=== PATIENT | female | born 1990 | race Caucasian/White ===

== ENCOUNTER 2017-08-12 18:00 | Emergency (ER) | payer BC ==
[2017-08-12 18:09] VITALS: BP 123/58; PULSE 85; RESP 20; TEMP 98.4
[2017-08-12] MEDS ORDERED: IBUPROFEN 600 MG TAB PO STA (18:15)
--- NOTE | 2017-08-12 18:23 | ED ---
Upper Extremity HPI - General Chief Complaint: Extremity Injury, Upper Stated Complaint: Knuckle pain Time Seen by Provider: 08/12/17 18:10 Source: patient Mode of arrival: ambulatory Limitations: no limitations - History of Present Illness Initial Comments: This is a 27-year-old female who presents with a chief complaint of right hand pain which began about 8 days ago after she punched a wall. The patient states that she punched a wall at home and had minor bruising on her dorsal hand. She denies any additional symptoms occurring until 4 days ago when she dropped a heavy object on her palm at work. She states that she woke up the next morning with swelling and decreased range of motion of her right hand, especially her right 5th finger. She has been taking over the counter Motrin and using ice and heat to reduce the pain and swelling. She reports today is a 7/10 pain. - Related Data Home Medications Medication Instructions Recorded Confirmed Ibuprofen [Motrin Ib] 400 mg PO Q6HR PRN 08/12/17 08/12/17 Previous Rx's Medication Instructions Recorded Ibuprofen [Motrin] 600 mg PO Q8HR PRN #30 tab 08/12/17 Allergies Allergy/AdvReac Type Severity Reaction Status Date / Time No Known Allergies Allergy Verified 08/12/17 18:34 Review of Systems ROS Statement: Those systems with pertinent positive or pertinent negative responses have been documented in the HPI. ROS Other: All systems not noted in ROS Statement are negative. Past Medical History Past Medical History: No Reported History History of Any Multi-Drug Resistant Organisms: None Reported Past Surgical History: No Surgical Hx Reported Past Psychological History: No Psychological Hx Reported Smoking Status: Current every day smoker Past Alcohol Use History: None Reported Past Drug Use History: None Reported General Exam Limitations: no limitations General appearance: alert, in no apparent distress Head exam: Present: atraumatic, normocephalic, normal inspection Extremities exam: Present: normal inspection, other (patient is unable to close her right fist completely. Full active ROM of all digits but right 5th finger is painful. Notable edema of the right hand when compared bilaterally) Psychiatric exam: Present: normal affect, normal mood Skin exam: Present: warm, dry, intact, normal color. Absent: rash Course Vital Signs 08/12/17 18:07 Temperature 98.4 F Pulse Rate 85 Respiratory 20 Rate Blood Pressure 123/58 O2 Sat by Pulse 100 Oximetry Medical Decision Making - Medical Decision Making This is a 27 year old female who came into the ED with a chief complaint of right hand pain. She was given Motrin 600 to control her pain in the ER. Imaging of the right hand did not reveal any acute fracture, dislocation or abnormality. The findings were discussed with the patient. She was advised to continue Motrin as needed for pain. Disposition Clinical Impression: Contusion of right hand Disposition: HOME SELF-CARE Condition: Stable Instructions: Hand Sprain (ED) Additional Instructions: Please return to the emergency department if experiencing new or worsening symptoms. Prescriptions: Ibuprofen [Motrin] 600 mg PO Q8HR PRN #30 tab PRN Reason: Pain Referrals: None,Stated [Primary Care Provider] - 1-2 days Time of Disposition: 18:58
--- NOTE | 2017-08-12 19:41 | XR ---
EXAMINATION TYPE: XR hand complete RT DATE OF EXAM: 08/12/2017 COMPARISON: NONE HISTORY: Punching type injury pain fourth and fifth digits TECHNIQUE: Three-view right hand FINDINGS: No acute fractures are evident. The soft tissues are normal. Joint spaces are preserved. IMPRESSION: 1. No acute fractures. 2. Follow-up exams can be performed 7-10 days from acute trauma for continued pain
== END 2017-08-12 19:08 | disposition home or self-care (01) ==
LOC: EC 18:00
DX: S60.221A Contusion of right hand, initial encounter (principal); F17.200 Nicotine dependence, unspecified, uncomplicated; W20.8XXA Other cause of strike by thrown, projected or falling object, initial encounter; Y92.69 Other specified industrial and construction area as the place of occurrence of the external cause; Y99.0 Civilian activity done for income or pay
CPT/HCPCS: 99283

== ENCOUNTER 2018-04-10 11:39 | Emergency (ER) | payer BC, OTHER ==
[2018-04-10] MEDS ORDERED: SODIUM CHLORIDE 0.9% 1,000 ML IV ONE (12:25)
[2018-04-10 12:38] LABS: Appearance,Urine Cloudy (Clear); Bilirubin,Urine 1+ (Negative); Blood,Urine Negative (Negative); Color,Urine Yellow; Glucose,Urine (UA) Negative (Negative); Ketones,Urine Trace (Negative); Leukocyte Esterase,Urine Negative (Negative); Mucus,Urine Many /hpf; Nitrite,Urine Negative (Negative); Protein,Urine 2+ (Negative); RBC,Urine 3 /hpf (0-5); Specific Gravity,Urine 1.032 (1.001-1.035); Squamous Epithelial Cell,Urine 10 /hpf (0-4); WBC,Urine 3 /hpf (0-5)
[2018-04-10] MEDS ORDERED: PANTOPRAZOLE 40 MG/10 ML VIAL IVP STA (12:48)
[2018-04-10] MEDS ORDERED: ONDANSETRON 4 MG/2 ML VIAL IVP STA (12:48)
--- NOTE | 2018-04-10 12:53 | ED ---
Abdominal Pain HPI - General Chief Complaint: Abdominal Pain Stated Complaint: vomiting blood Time Seen by Provider: 04/10/18 12:21 Source: patient, RN notes reviewed, old records reviewed Mode of arrival: ambulatory Limitations: no limitations - History of Present Illness Initial Comments: 27-year-old female presents or dermatologic complaint of nausea, vomiting. Occurred after she ate a hot sausage sandwich 2 days ago. Patient states that she's had no fevers or chills. She complains of increased belching and epigastric abdominal pain. She denies fever, chills, lower abdominal pain, back pain. - Related Data Previous Rx's Medication Instructions Recorded Famotidine [Pepcid] 20 mg PO BID #20 tablet 04/10/18 Ondansetron Odt [Zofran Odt] 4 mg PO Q8HR PRN #12 tab 04/10/18 Allergies Allergy/AdvReac Type Severity Reaction Status Date / Time No Known Allergies Allergy Verified 04/10/18 12:39 Review of Systems ROS Statement: Those systems with pertinent positive or pertinent negative responses have been documented in the HPI. ROS Other: All systems not noted in ROS Statement are negative. Past Medical History Past Medical History: No Reported History History of Any Multi-Drug Resistant Organisms: None Reported Past Surgical History: No Surgical Hx Reported Past Psychological History: No Psychological Hx Reported Smoking Status: Current every day smoker Past Alcohol Use History: Occasional Past Drug Use History: None Reported General Exam - General Exam Comments Initial Comments: This is a 27 year old female. No acute distress. Limitations: no limitations General appearance: alert, in no apparent distress Head exam: Present: atraumatic, normocephalic, normal inspection Eye exam: Present: normal appearance, PERRL, EOMI. Absent: scleral icterus, conjunctival injection, periorbital swelling ENT exam: Present: normal exam, mucous membranes moist Neck exam: Present: normal inspection. Absent: tenderness, meningismus, lymphadenopathy Respiratory exam: Present: normal lung sounds bilaterally. Absent: respiratory distress, wheezes, rales, rhonchi, stridor Cardiovascular Exam: Present: regular rate, normal rhythm, normal heart sounds. Absent: systolic murmur, diastolic murmur, rubs, gallop, clicks GI/Abdominal exam: Present: soft, normal bowel sounds. Absent: distended, tenderness, guarding, rebound, rigid Extremities exam: Present: normal inspection, full ROM, normal capillary refill. Absent: tenderness, pedal edema, joint swelling, calf tenderness Back exam: Present: normal inspection Neurological exam: Present: alert, oriented X3, CN II-XII intact Psychiatric exam: Present: normal affect, normal mood Skin exam: Present: warm, dry, intact, normal color. Absent: rash Course Vital Signs 04/10/18 04/10/18 04/10/18 11:50 13:54 14:00 Temperature 98.9 F 98.7 F 98.1 F Pulse Rate 101 H 83 77 Respiratory 20 16 18 Rate Blood Pressure 139/78 115/57 131/72 O2 Sat by Pulse 97 100 98 Oximetry Medical Decision Making - Medical Decision Making Well appearing 27 year old female, presents with epigastric abdominal pain. Patient has vomiting yesterday. Patient was given IV fluids, labs obtained and show no acute changes. She was given IV protonix and zofran and reports improvement. Discussed likely symptoms of gastritis with increased belching, and epigastrtic pain. Patient will be discharged with pepcid and zofran. Discussed return parameters. - Lab Data Result diagrams: 04/10/18 12:48 04/10/18 12:48 Lab Results 04/10/18 04/10/18 04/10/18 Range/Units 12:00 12:00 12:48 WBC (3.8-10.6) k/uL RBC (3.80-5.40) m/uL Hgb (11.4-16.0) gm/dL Hct (34.0-46.0) % MCV (80.0-100.0) fL MCH (25.0-35.0) pg MCHC (31.0-37.0) g/dL RDW (11.5-15.5) % Plt Count (150-450) k/uL Neutrophils % % Lymphocytes % % Monocytes % % Eosinophils % % Basophils % % Neutrophils # (1.3-7.7) k/uL Lymphocytes # (1.0-4.8) k/uL Monocytes # (0-1.0) k/uL Eosinophils # (0-0.7) k/uL Basophils # (0-0.2) k/uL Sodium 141 (137-145) mmol/L Potassium 3.7 (3.5-5.1) mmol/L Chloride 105 (98-107) mmol/L Carbon Dioxide 28 (22-30) mmol/L Anion Gap 8 mmol/L BUN 13 (7-17) mg/dL Creatinine 0.75 (0.52-1.04) mg/dL Est GFR (CKD-EPI)AfAm >90 (>60 ml/min/1.73 sqM) Est GFR (CKD-EPI)NonAf >90 (>60 ml/min/1.73 sqM) Glucose 81 (74-99) mg/dL Calcium 9.1 (8.4-10.2) mg/dL Total Bilirubin 0.4 (0.2-1.3) mg/dL AST 26 (14-36) U/L ALT 31 (9-52) U/L Alkaline Phosphatase 53 (38-126) U/L Total Protein 7.0 (6.3-8.2) g/dL Albumin 4.1 (3.5-5.0) g/dL Amylase 46 (30-110) U/L Lipase 190 (23-300) U/L Urine Color Yellow Urine Appearance Cloudy H (Clear) Urine pH 6.0 (5.0-8.0) Ur Specific [place] 1.032 (1.001-1.035) Urine Protein 2+ H (Negative) Urine Glucose (UA) Negative (Negative) Urine Ketones Trace H (Negative) Urine Blood Negative (Negative) Urine Nitrite Negative (Negative) Urine Bilirubin 1+ H (Negative) Urine Urobilinogen 3.0 (<2.0) mg/dL Ur Leukocyte Esterase Negative (Negative) Urine RBC 3 (0-5) /hpf Urine WBC 3 (0-5) /hpf Ur Squamous Epith Cells 10 H (0-4) /hpf Urine Mucus Many H (None) /hpf Urine HCG, Qual Not Detected (Not Detectd) 04/10/18 Range/Units 12:48 WBC 8.1 (3.8-10.6) k/uL RBC 4.91 (3.80-5.40) m/uL Hgb 15.1 (11.4-16.0) gm/dL Hct 45.8 (34.0-46.0) % MCV 93.4 (80.0-100.0) fL MCH 30.7 (25.0-35.0) pg MCHC 32.9 (31.0-37.0) g/dL RDW 12.7 (11.5-15.5) % Plt Count 158 (150-450) k/uL Neutrophils % 57 % Lymphocytes % 33 % Monocytes % 7 % Eosinophils % 1 % Basophils % 1 % Neutrophils # 4.6 (1.3-7.7) k/uL Lymphocytes # 2.7 (1.0-4.8) k/uL Monocytes # 0.5 (0-1.0) k/uL Eosinophils # 0.1 (0-0.7) k/uL Basophils # 0.1 (0-0.2) k/uL Sodium (137-145) mmol/L Potassium (3.5-5.1) mmol/L Chloride (98-107) mmol/L Carbon Dioxide (22-30) mmol/L Anion Gap mmol/L BUN (7-17) mg/dL Creatinine (0.52-1.04) mg/dL Est GFR (CKD-EPI)AfAm (>60 ml/min/1.73 sqM) Est GFR (CKD-EPI)NonAf (>60 ml/min/1.73 sqM) Glucose (74-99) mg/dL Calcium (8.4-10.2) mg/dL Total Bilirubin (0.2-1.3) mg/dL AST (14-36) U/L ALT (9-52) U/L Alkaline Phosphatase (38-126) U/L Total Protein (6.3-8.2) g/dL Albumin (3.5-5.0) g/dL Amylase (30-110) U/L Lipase (23-300) U/L Urine Color Urine Appearance (Clear) Urine pH (5.0-8.0) Ur Specific [place] (1.001-1.035) Urine Protein (Negative) Urine Glucose (UA) (Negative) Urine Ketones (Negative) Urine Blood (Negative) Urine Nitrite (Negative) Urine Bilirubin (Negative) Urine Urobilinogen (<2.0) mg/dL Ur Leukocyte Esterase (Negative) Urine RBC (0-5) /hpf Urine WBC (0-5) /hpf Ur Squamous Epith Cells (0-4) /hpf Urine Mucus (None) /hpf Urine HCG, Qual (Not Detectd) Disposition Clinical Impression: Gastritis Disposition: HOME SELF-CARE Condition: Good Instructions: Gastritis (ED) Additional Instructions: Patient is follow-up with primary care provider. Take medications as prescribed. Return to emergency department if any alarming signs or symptoms occur. Prescriptions: Famotidine [Pepcid] 20 mg PO BID #20 tablet Ondansetron Odt [Zofran Odt] 4 mg PO Q8HR PRN #12 tab PRN Reason: Nausea Is patient prescribed a controlled substance at d/c from ED?: No Referrals: None,Stated [Primary Care Provider] - 1-2 days Tess Villanueva MD [STAFF PHYSICIAN] - 1-2 days Time of Disposition: 13:36
[2018-04-10 13:12] LABS: Basophils # (A) 0.1 k/uL (0-0.2); Basophils % (A) 1 %; Eosinophils # (A) 0.1 k/uL (0-0.7); Eosinophils % (A) 1 %; HCT 45.8 % (34.0-46.0); HGB 15.1 gm/dL (11.4-16.0); Lymphocytes # (A) 2.7 k/uL (1.0-4.8); Lymphocytes % (A) 33 %; MCH 30.7 pg (25.0-35.0); MCHC 32.9 g/dL (31.0-37.0); MCV 93.4 fL (80.0-100.0); Mean Platelet Volume 7.6; Monocytes # (A) 0.5 k/uL (0-1.0); Monocytes % (A) 7 %; Neutrophils # (A) 4.6 k/uL (1.3-7.7); Neutrophils % (A) 57 %; Platelet Count 158 k/uL (150-450); RBC 4.91 m/uL (3.80-5.40); RDW 12.7 % (11.5-15.5); WBC 8.1 k/uL (3.8-10.6)
[2018-04-10 13:23] LABS: ALT 31 U/L (9-52); AST 26 U/L (14-36); Albumin 4.1 g/dL (3.5-5.0); Alkaline Phosphatase 53 U/L (38-126); Amylase 46 U/L (30-110); Anion Gap 8 mmol/L; Blood Urea Nitrogen 13 mg/dL (7-17); Calcium 9.1 mg/dL (8.4-10.2); Carbon Dioxide 28 mmol/L (22-30); Chloride 105 mmol/L (98-107); Glucose 81 mg/dL (74-99); Lipase 190 U/L (23-300); Potassium 3.7 mmol/L (3.5-5.1); Sodium 141 mmol/L (137-145); Total Bilirubin 0.4 mg/dL (0.2-1.3)
[2018-04-10 14:01] VITALS: BP 131/72; PULSE 77; RESP 18; TEMP 98.1
== END 2018-04-10 14:00 | disposition home or self-care (01) ==
LOC: EC 11:39
DX: K29.70 Gastritis, unspecified, without bleeding (principal); F17.200 Nicotine dependence, unspecified, uncomplicated
CPT/HCPCS: 36415; 80053; 82150; 83690; 85025; 81001; 81025; 99284; 96374; 96375; 96361; J2405; C9113

== ENCOUNTER 2019-03-14 13:41 | Emergency (ER) | payer OTHER ==
[2019-03-14 13:50] VITALS: BP 115/75; PULSE 95; RESP 102; TEMP 98.7
--- NOTE | 2019-03-14 14:31 | ED ---
Upper Extremity HPI - General Chief Complaint: Extremity Injury, Upper Stated Complaint: Fall injured both elbows Time Seen by Provider: 03/14/19 14:01 Source: patient Mode of arrival: ambulatory Limitations: no limitations - History of Present Illness Initial Comments: Patient is a 28-year-old female presenting to emergency Department with complaints of bilateral elbow pain after falling last night. Patient states she fell down a few stairs at approximately 3 AM this morning. Patient denies LOC, hitting her head, headache. Patient states she is only complaining of bilateral elbow pain. Patient does have abrasions to both elbows. No active bleeding. Patient denies any other injuries at this time. Upon arrival to ER, vital signs are stable. - Related Data Previous Rx's Medication Instructions Recorded Famotidine [Pepcid] 20 mg PO BID #20 tablet 04/10/18 Ondansetron Odt [Zofran Odt] 4 mg PO Q8HR PRN #12 tab 04/10/18 Allergies Allergy/AdvReac Type Severity Reaction Status Date / Time No Known Allergies Allergy Verified 03/14/19 13:49 Review of Systems ROS Statement: Those systems with pertinent positive or pertinent negative responses have been documented in the HPI. ROS Other: All systems not noted in ROS Statement are negative. Past Medical History Past Medical History: No Reported History History of Any Multi-Drug Resistant Organisms: None Reported Past Surgical History: No Surgical Hx Reported Past Psychological History: No Psychological Hx Reported Smoking Status: Current every day smoker Past Alcohol Use History: Occasional Past Drug Use History: Marijuana General Exam - General Exam Comments Initial Comments: GENERAL: Well-appearing, well-nourished and in no acute distress. HEAD: Atraumatic, normocephalic. EYES: Pupils equal round and reactive to light, extraocular movements intact, sclera anicteric, conjunctiva are normal. ENT: TMs normal, nares patent, oropharynx clear without exudates. Moist mucous membranes. NECK: Normal range of motion, supple without lymphadenopathy or JVD. LUNGS: Breath sounds clear to auscultation bilaterally and equal. No wheezes rales or rhonchi. HEART: Regular rate and rhythm without murmurs, rubs or gallops. ABDOMEN: Soft, nontender, normoactive bowel sounds. No guarding, no rebound. No masses appreciated. : Deferred EXTREMITIES: Patient has full range of motion of both elbows. Patient has mild pain at the end ranges and with pronation and supination. Patient has mild swelling of the left elbow. Patient does have superficial abrasions to both elbows. No active bleeding, no lacerations. Neurovascular intact in bilateral arms. NEUROLOGICAL: Cranial nerves II through XII grossly intact. Normal speech, normal gait. PSYCH: Normal mood, normal affect. SKIN: Warm, Dry, normal turgor, no rashes or lesions noted. Limitations: no limitations Course Vital Signs 03/14/19 13:47 Temperature 98.7 F Pulse Rate 95 Respiratory 102 H Rate Blood Pressure 115/75 O2 Sat by Pulse 97 Oximetry Medical Decision Making - Medical Decision Making Patient is a 28-year-old female presenting with bilateral elbow pain after falling off the last couple stairs and landing on both elbows. Patient has mild abrasions to both elbows. Patient has full range of motion is neurovascular intact. X-ray showed no acute fractures or dislocations. Patient will ice and use Tylenol or Motrin for pain relief. If pain persists patient will follow up with PCP. Patient is stable for discharge at this time. Return parameters were discussed with the patient she verbalized understanding. Case discussed with Dr. Castañeda. Disposition Clinical Impression: Bilateral elbow joint pain, Abrasion of elbow Disposition: HOME SELF-CARE Condition: Stable Instructions (If sedation given, give patient instructions): Contusion in Adults (ED) Additional Instructions: Please return to the Emergency Department if symptoms worsen or any other concerns. Use ice, Tylenol, Motrin as needed for pain. Is patient prescribed a controlled substance at d/c from ED?: No Referrals: None,Stated [Primary Care Provider] - 1-2 days
--- NOTE | 2019-03-14 14:50 | XR ---
EXAMINATION TYPE: XR elbow complete bilateral DATE OF EXAM: 03/14/2019 CLINICAL HISTORY: Bilateral pain after fall injury today. TECHNIQUE: Frontal, lateral and oblique images of the bilateral elbows are obtained. COMPARISON: None FINDINGS: There is no acute fracture/dislocation evident in either elbow. No abnormal fat pad signs are seen bilaterally. Mild subcutaneous edema along the dorsal surface distal humerus is noted in th e left elbow. IMPRESSION: There is no acute fracture or dislocation in either elbow.
== END 2019-03-14 15:13 | disposition home or self-care (01) ==
LOC: EC 13:41
DX: S50.311A Abrasion of right elbow, initial encounter (principal); S50.312A Abrasion of left elbow, initial encounter; F17.200 Nicotine dependence, unspecified, uncomplicated; W10.9XXA Fall (on) (from) unspecified stairs and steps, initial encounter; Y92.009 Unspecified place in unspecified non-institutional (private) residence as the place of occurrence of the external cause
CPT/HCPCS: 99283

== ENCOUNTER 2019-03-17 19:26 | Emergency (ER) | payer OTHER ==
[2019-03-17 19:51] VITALS: RESP 20; TEMP 98.6
[2019-03-17] MEDS ORDERED: IPRATROPIUM-ALBUTEROL 3 ML NEB INHALATION STA (20:43)
--- NOTE | 2019-03-17 20:45 | ED ---
General Adult HPI - General Chief complaint: Upper Respiratory Infection Stated complaint: Congested Time Seen by Provider: 03/17/19 20:26 Source: patient, family Mode of arrival: ambulatory Limitations: no limitations - History of Present Illness Initial comments: Patient is a 28-year-old female presenting to the emergency department with a chief complaint of cough and congestion. Patient reports his symptoms began about 2 days ago with a sore throat and sinus congestion. Patient reports since then she has developed a productive cough with green sputum production. Patient reports she is also been wheezing area patient is a smoker and does have asthma. Patient does not use an inhaler at home. Patient denies otalgia or headaches. Patient denies fevers night sweats or chills. Patient has an abdominal back pain. Patient reports the pain at patient reports the sore throat has since resolved. Patient denies taking medication to alleviate the symptoms. - Related Data Previous Rx's Medication Instructions Recorded Famotidine [Pepcid] 20 mg PO BID #20 tablet 04/10/18 Ondansetron Odt [Zofran Odt] 4 mg PO Q8HR PRN #12 tab 04/10/18 Albuterol Inhaler [Ventolin Hfa 1 - 2 puff INHALATION RT-Q6H PRN 03/17/19 Inhaler] #1 inhaler methylPREDNISolone Dose Pack 4 mg PO DIRECTED #21 package 03/17/19 [Medrol Dose Pack] Allergies Allergy/AdvReac Type Severity Reaction Status Date / Time No Known Allergies Allergy Verified 03/17/19 19:51 Review of Systems ROS Statement: Those systems with pertinent positive or pertinent negative responses have been documented in the HPI. ROS Other: All systems not noted in ROS Statement are negative. Past Medical History Past Medical History: No Reported History History of Any Multi-Drug Resistant Organisms: None Reported Past Surgical History: No Surgical Hx Reported Past Psychological History: No Psychological Hx Reported Smoking Status: Current every day smoker Past Alcohol Use History: Occasional Past Drug Use History: Marijuana General Exam Limitations: no limitations General appearance: alert, in no apparent distress Head exam: Present: atraumatic, normocephalic, normal inspection Eye exam: Present: normal appearance, PERRL, EOMI. Absent: conjunctival injection Pupils: Present: normal accommodation ENT exam: Present: normal exam, normal oropharynx (No enlarged tonsils or exudates), mucous membranes moist, TM's normal bilaterally (No bulging or erythema), normal external ear exam (No exudates or drainage) Neck exam: Present: normal inspection, full ROM. Absent: lymphadenopathy Respiratory exam: Present: wheezes (Bilateral) Cardiovascular Exam: Present: regular rate, normal rhythm, normal heart sounds Extremities exam: Present: normal inspection, full ROM, normal capillary refill Back exam: Present: normal inspection, full ROM Neurological exam: Present: alert, oriented X3 Psychiatric exam: Present: normal affect, normal mood Skin exam: Present: warm, intact, normal color Course Vital Signs 03/17/19 03/17/19 03/17/19 19:48 21:05 21:16 Temperature 98.6 F Pulse Rate 89 80 92 Respiratory 20 Rate Blood Pressure 127/79 O2 Sat by Pulse 100 Oximetry Medical Decision Making - Medical Decision Making Patient is 28-year-old female presenting to the emergency department with a chief complaint of cough and congestion. Patient has had a productive cough with yellow sputum production. Has been no fevers night sweats or chills. Patient does have asthma and is a smoker. Chest x-ray is unremarkable. Patient given a breathing treatment. On reevaluation patient reports feeling much better and the wheezing has decreased. Patient will be discharged with a Medrol Dosepak and an albuterol inhaler. Patient advised to follow-up with primary care.I counseled the patient for smoking cessation for greater than 3 minutes. Strict return parameters were thoroughly discussed with patient was understanding and agreeable. Case discussed with physician. Disposition Clinical Impression: Common cold, Bronchitis Disposition: HOME SELF-CARE Condition: Stable Instructions (If sedation given, give patient instructions): Upper Respiratory Infection (ED) Additional Instructions: Please take prescribed medication as directed. Please follow with primary care. Patient is instructed to emergency department if symptoms worsen. Prescriptions: methylPREDNISolone Dose Pack [Medrol Dose Pack] 4 mg PO DIRECTED #21 package Albuterol Inhaler [Ventolin Hfa Inhaler] 1 - 2 puff INHALATION RT-Q6H PRN #1 inhaler PRN Reason: Wheezing Is patient prescribed a controlled substance at d/c from ED?: No Referrals: None,Stated [Primary Care Provider] - 1-2 days Time of Disposition: 21:19
--- NOTE | 2019-03-17 20:55 | XR ---
EXAMINATION TYPE: XR chest 2V DATE OF EXAM: 03/17/2019 COMPARISON: 10/25/2014 HISTORY: Cough and congestion TECHNIQUE: Frontal and lateral views of the chest are obtained. FINDINGS: Heart and mediastinum are normal. Lungs are clear. Diaphragm is normal. Bony thorax is nor mal. IMPRESSION: Normal chest. No change.
[2019-03-17 21:47] VITALS: BP 120/68; PULSE 88
== END 2019-03-17 21:46 | disposition home or self-care (01) ==
LOC: EC 19:26
DX: J45.909 Unspecified asthma, uncomplicated (principal); F17.200 Nicotine dependence, unspecified, uncomplicated
CPT/HCPCS: 71046; 94640; 99283

== ENCOUNTER 2019-04-03 14:05 | Emergency (ER) | payer OTHER ==
--- NOTE | 2019-04-03 14:53 | ED ---
Female Urogenital HPI - General Chief complaint: Vaginal Bleeding Stated complaint: Cramping, vaginal bleeding Time Seen by Provider: 04/03/19 14:12 Source: patient Mode of arrival: ambulatory Limitations: no limitations - History of Present Illness Initial comments: 28-year-old female presented from for abdominal cramping and . Patient states that she's had this since the weekend states that she was evaluated in the hospital slightly be positive blood type, showed early intrauterine and beta quantitative 8000. Patient states she was advised that she have a recheck to make sure is going up. Patient states that no increase in bleeding she's had minimal discomfort. Patient denies any dysuria hematuria no fevers or chills patient has not contacted a [employer]CHNICIAN at this time. Patient is A2 - Related Data Previous Rx's Medication Instructions Recorded Famotidine [Pepcid] 20 mg PO BID #20 tablet 04/10/18 Ondansetron Odt [Zofran Odt] 4 mg PO Q8HR PRN #12 tab 04/10/18 Albuterol Inhaler [Ventolin Hfa 1 - 2 puff INHALATION RT-Q6H PRN 03/17/19 Inhaler] #1 inhaler methylPREDNISolone Dose Pack 4 mg PO DIRECTED #21 package 03/17/19 [Medrol Dose Pack] Allergies Allergy/AdvReac Type Severity Reaction Status Date / Time No Known Allergies Allergy Verified 04/03/19 14:09 Review of Systems ROS Statement: Those systems with pertinent positive or pertinent negative responses have been documented in the HPI. ROS Other: All systems not noted in ROS Statement are negative. Past Medical History Past Medical History: Asthma, Hypertension History of Any Multi-Drug Resistant Organisms: None Reported Past Surgical History: No Surgical Hx Reported Past Psychological History: No Psychological Hx Reported Smoking Status: Current every day smoker Past Alcohol Use History: Occasional Past Drug Use History: Marijuana General Exam Limitations: no limitations General appearance: alert, in no apparent distress Head exam: Present: atraumatic, normocephalic, normal inspection Respiratory exam: Present: normal lung sounds bilaterally. Absent: respiratory distress, wheezes, rales, rhonchi, stridor Cardiovascular Exam: Present: regular rate, normal rhythm, normal heart sounds. Absent: systolic murmur, diastolic murmur, rubs, gallop, clicks GI/Abdominal exam: Present: soft, normal bowel sounds. Absent: distended, tenderness, guarding, rebound, rigid Course Vital Signs 04/03/19 14:07 Temperature 97.8 F Pulse Rate 87 Respiratory 20 Rate Blood Pressure 116/64 O2 Sat by Pulse 99 Oximetry Medical Decision Making - Medical Decision Making 28-year-old female presented for abdominal discomfort and minimal bleeding early . Patient does not require RhoGAM. Patient's hCG is steadily climbed. Patient will be discharged with follow-up. Return parameters were discussed. - Lab Data Lab Results 04/03/19 04/03/19 Range/Units 14:47 14:54 HCG, Quant 95784.8 mIU/mL Urine Color Light Yellow Urine Appearance Clear (Clear) Urine pH 6.5 (5.0-8.0) Ur Specific [place] 1.009 (1.001-1.035) Urine Protein Negative (Negative) Urine Glucose (UA) Negative (Negative) Urine Ketones Negative (Negative) Urine Blood Negative (Negative) Urine Nitrite Negative (Negative) Urine Bilirubin Negative (Negative) Urine Urobilinogen <2.0 (<2.0) mg/dL Ur Leukocyte Esterase Negative (Negative) Disposition Clinical Impression: Threatened miscarriage in early Disposition: HOME SELF-CARE Condition: Stable Instructions (If sedation given, give patient instructions): Threatened Miscarriage (ED) Additional Instructions: Please return to the Emergency Department if symptoms worsen or any other concerns. Is patient prescribed a controlled substance at d/c from ED?: No Referrals: None,Stated [Primary Care Provider] - 1-2 days Time of Disposition: 15:49
[2019-04-03 15:20] LABS: Appearance,Urine Clear (Clear); Bilirubin,Urine Negative (Negative); Blood,Urine Negative (Negative); Color,Urine Light Yellow; Glucose,Urine (UA) Negative (Negative); Ketones,Urine Negative (Negative); Leukocyte Esterase,Urine Negative (Negative); Nitrite,Urine Negative (Negative); PH, Urine 6.5 (5.0-8.0); Protein,Urine Negative (Negative); Specific Gravity,Urine 1.009 (1.001-1.035); Urobilinogen,Urine <2.0 mg/dL (<2.0)
[2019-04-03 16:08] VITALS: BP 132/62; PULSE 75; RESP 18; TEMP 98.7
== END 2019-04-03 16:08 | disposition home or self-care (01) ==
LOC: EC 14:05
DX: O20.0 Threatened abortion (principal); F17.200 Nicotine dependence, unspecified, uncomplicated; Z3A.00 Weeks of gestation of pregnancy not specified
CPT/HCPCS: 36415; 81003; 84702; 99284

== ENCOUNTER → 2019-05-12 | Outpatient (CLI) | payer OTHER ==
--- NOTE | 2019-05-12 09:15 | US ---
EXAMINATION TYPE: Transabdominal DATE OF EXAM: 05/12/2019 9:03 AM COMPARISON: NONE CLINICAL HISTORY: Z34.01 supervision of normal first , firs. Prior vaginal spotting with thi s . EXAM PERFORMED: Transabdominal (TA), plus added cervical measurement via TV US per Dr Duarte's order . EXAM MEASUREMENTS: GESTATIONAL AGE / DATING Physician Established: Not yet established Dates by LMP: (12 weeks/1 day) EDC: 11/23/2019 Dates by First Scan: No previous this is first scan Dates by Current Scan for: (12 weeks/0 days) EDC: 11/24/2019 MATERNAL ANATOMY Uterus: 10.1 x 8.5 x 8.4cm Right Ovary: not seen Left Ovary: not seen Post CDS / Adnexa: small amount of fluid area seen in CDS =2.1 x 2.2 x 1.4cm, likely physiologic in n ature Presence of corpus luteal cyst: ovaries not seen Presence of subchorionic bleed: no GESTATION / SURVEY CRL: 5.5cm (12 weeks/0 days) Yolk Sac (normal less than 6mm): 4.7mm Heart Rate: 162 bpm Rhythm: Normal IUP: Single, live IUP Nuchal Translucency 10-14wks (normal less than 3mm): 1.0mm Date of LMP: 02/16/2019 Beta HcG (if available): NA Cervical length measured x 3 by TV US with shortest length = 3.3cm (wnl). Single, live IUP,12 weeks/0 days, EDC: 11/24/2019, [id number]. IMPRESSION: Single live intrauterine with a sonographic age of 12 weeks and 0 days and estimated date o f delivery of 11/24/2019. Cervical length measured 3 times is within normal limits (shortest length me asured of 3.3 cm).
== END | disposition home or self-care (01) ==
LOC: RADUSMAIN 07:54
PROVIDERS: ATTEND Obstetrics & Gynecology
DX: Z34.01 Encounter for supervision of normal first pregnancy, first trimester (principal); Z3A.12 12 weeks gestation of pregnancy
CPT/HCPCS: 76801; 76813; 76817

== ENCOUNTER 2019-06-29 16:48 | Emergency (ER) | payer OTHER ==
[2019-06-29 17:06] VITALS: TEMP 98
--- NOTE | 2019-06-29 17:43 | ED ---
Female Urogenital HPI - General Chief complaint: Abdominal Pain Stated complaint: 19.5 wks preg/lower abdominal & back pain Time Seen by Provider: 06/29/19 17:11 Source: patient, RN notes reviewed, old records reviewed Mode of arrival: ambulatory Limitations: no limitations - History of Present Illness Initial comments: This is a 28-year-old female here for evaluation of , abdominal pain and . She also complains of increased frequency of urination. No other complaints of chest pain shortness of breath no change in medications. No fevers. Patient has been following up with OB throughout . Patient states crapping his binges recently increased and mainly concerned or urination. Patient wishes about 19 weeks with no symptoms of contractions. MD Complaint: pelvic pain (Cramping), other (Increased urge to urinate) -: days(s) Location: suprapubic Severity: mild Severity scale (1-10): 2 Quality: cramping Consistency: intermittent Improves with: none Worsens with: urination Patient : Yes Associated Symptoms: denies other symptoms - Related Data Previous Rx's Medication Instructions Recorded Famotidine [Pepcid] 20 mg PO BID #20 tablet 04/10/18 Ondansetron Odt [Zofran Odt] 4 mg PO Q8HR PRN #12 tab 04/10/18 RX: Albuterol Inhaler [Ventolin 1 - 2 puff INHALATION RT-Q6H PRN 03/17/19 Hfa Inhaler] #1 inhaler methylPREDNISolone Dose Pack 4 mg PO DIRECTED #21 package 03/17/19 [Medrol Dose Pack] Allergies Allergy/AdvReac Type Severity Reaction Status Date / Time No Known Allergies Allergy Verified 06/29/19 17:06 Review of Systems ROS Statement: Those systems with pertinent positive or pertinent negative responses have been documented in the HPI. ROS Other: All systems not noted in ROS Statement are negative. Past Medical History Past Medical History: Asthma, Hypertension History of Any Multi-Drug Resistant Organisms: None Reported Past Surgical History: No Surgical Hx Reported Past Psychological History: No Psychological Hx Reported Smoking Status: Current every day smoker Past Alcohol Use History: Occasional Past Drug Use History: Marijuana General Exam Limitations: no limitations General appearance: alert, in no apparent distress Head exam: Present: atraumatic, normocephalic, normal inspection Eye exam: Present: normal appearance, PERRL, EOMI. Absent: scleral icterus, conjunctival injection, periorbital swelling ENT exam: Present: normal exam, mucous membranes moist Neck exam: Present: normal inspection. Absent: tenderness, meningismus, lymphadenopathy Respiratory exam: Present: normal lung sounds bilaterally. Absent: respiratory distress, wheezes, rales, rhonchi, stridor Cardiovascular Exam: Present: regular rate, normal rhythm, normal heart sounds. Absent: systolic murmur, diastolic murmur, rubs, gallop, clicks GI/Abdominal exam: Present: soft, normal bowel sounds. Absent: distended, tenderness, guarding, rebound, rigid Extremities exam: Present: normal inspection, full ROM, normal capillary refill. Absent: tenderness, pedal edema, joint swelling, calf tenderness Back exam: Present: normal inspection Neurological exam: Present: alert, oriented X3, CN II-XII intact Psychiatric exam: Present: normal affect, normal mood Skin exam: Present: warm, dry, intact, normal color. Absent: rash Course Vital Signs 06/29/19 17:03 Temperature 98 F Pulse Rate 106 H Respiratory 20 Rate Blood Pressure 132/84 O2 Sat by Pulse 99 Oximetry - Reevaluation(s) Reevaluation #1: 06/29/19 18:38 Medical record including prior ultrasound OB is reviewed Reevaluation #2: 06/29/19 18:38 Patient form of satisfactory growth normal urinalysis we'll culture urine Medical Decision Making - Medical Decision Making 28 female with abdominal pain and will culture urine for infection. Patient significant pain currently and can be discharged - Lab Data Lab Results 06/29/19 Range/Units 17:21 Urine Color Yellow Urine Appearance Clear (Clear) Urine pH 6.0 (5.0-8.0) Ur Specific [place] 1.023 (1.001-1.035) Urine Protein Trace H (Negative) Urine Glucose (UA) Negative (Negative) Urine Ketones Negative (Negative) Urine Blood Small H (Negative) Urine Nitrite Negative (Negative) Urine Bilirubin Negative (Negative) Urine Urobilinogen 2.0 (<2.0) mg/dL Ur Leukocyte Esterase Negative (Negative) Urine RBC 16 H (0-5) /hpf Urine WBC 1 (0-5) /hpf Ur Squamous Epith Cells 1 (0-4) /hpf Urine Mucus Rare H (None) /hpf - Radiology Data Radiology results: report reviewed (US pelvis OB shows satisfactory growth), image reviewed Disposition Clinical Impression: Abdominal pain Disposition: HOME SELF-CARE Instructions (If sedation given, give patient instructions): Abdominal Pain in (ED) Is patient prescribed a controlled substance at d/c from ED?: No Referrals: None,Stated [Primary Care Provider] - 1-2 days
--- NOTE | 2019-06-29 18:03 | US ---
EXAMINATION TYPE: US OB >= 14 wk fetus DATE OF EXAM: 06/29/2019 COMPARISON: US 2018 CLINICAL HISTORY: painPelvic pressure TECHNIQUE: Transabdominal (TA) GESTATIONAL AGE / DATING Physician Established: (19 weeks/1 days) EDC: 11/22/2019 Dates by LMP: (19 weeks/0 days) EDC: 11/23/2019 Dates by First Scan: (18 weeks/6 days) EDC: 11/24/2019 Dates by Current Scan: (18 weeks/4 days) EDC: 11/26/2019 SURVEY IUP: Single PLACENTA: Fundal/Anterior PREVIA: No Previa DEANDRA: 11.5 cm Normal CERVICAL LENGTH (transabdominal: norm > 3.0cm): 3.1 cm BIOMETRY PRESENTATION: Vertex BPD: 4.4 cm 19 weeks / 1 days HC: 15.8 cm 18 weeks / 5 days AC: 12.4 cm 18 weeks / 0 days FL: 2.9 cm 18 weeks / 5 days ESTIMATED WEIGHT IN GRAMS: 240 grams ESTIMATED WEIGHT IN LBS/OZ: 0 lbs. 8 oz. WEIGHT PERCENTAGE BASED ON ESTABLISHED DATES: 13% HC/AC: 1.27 Normal FL/AC: 22.95 HEART RATE: 153 bpm RHYTHM: Normal Viable single IUP measuring 18 weeks 4 days with a heart rate of 153bpm and an estimated delivery edd e of 11/26/2019. IMPRESSION: There is satisfactory growth compared to 05/12/2019 exam. No definite complicating process seen.
[2019-06-29 18:13] LABS: Appearance,Urine Clear (Clear); Bilirubin,Urine Negative (Negative); Blood,Urine Small (Negative); Color,Urine Yellow; Glucose,Urine (UA) Negative (Negative); Ketones,Urine Negative (Negative); Leukocyte Esterase,Urine Negative (Negative); Mucus,Urine Rare /hpf; Nitrite,Urine Negative (Negative); Protein,Urine Trace (Negative); RBC,Urine 16 /hpf (0-5); Specific Gravity,Urine 1.023 (1.001-1.035); Squamous Epithelial Cell,Urine 1 /hpf (0-4); WBC,Urine 1 /hpf (0-5)
[2019-06-29 18:45] VITALS: BP 130/80; PULSE 90; RESP 18
== END 2019-06-29 18:43 | disposition home or self-care (01) ==
LOC: EC 16:48
DX: O99.89 Other specified diseases and conditions complicating pregnancy, childbirth and the puerperium (principal); R10.2 Pelvic and perineal pain; R35.0 Frequency of micturition; R39.15 Urgency of urination; O99.332 Smoking (tobacco) complicating pregnancy, second trimester; F17.200 Nicotine dependence, unspecified, uncomplicated; Z3A.18 18 weeks gestation of pregnancy
CPT/HCPCS: 76805; 81001; 99284

== ENCOUNTER 2020-03-21 12:32 | Emergency (ER) | payer OTHER ==
[2020-03-21] MEDS ORDERED: SODIUM CHLORIDE 0.9% 1,000 ML IV STA (13:15)
[2020-03-21] MEDS ORDERED: KETOROLAC 15 MG/ML 1 ML VIAL IVP STA ×2 (13:15→15:09)
[2020-03-21 13:34] LABS: Appearance,Urine Clear (Clear); Bilirubin,Urine Negative (Negative); Blood,Urine Large (Negative); Color,Urine Yellow; Glucose,Urine (UA) Negative (Negative); Hyaline Casts,Urine 3 /lpf (0-2); Ketones,Urine 1+ (Negative); Leukocyte Esterase,Urine Negative (Negative); Mucus,Urine Many /hpf; Nitrite,Urine Negative (Negative); Protein,Urine 2+ (Negative); RBC,Urine 127 /hpf (0-5); Specific Gravity,Urine 1.029 (1.001-1.035); Squamous Epithelial Cell,Urine 2 /hpf (0-4); WBC,Urine 3 /hpf (0-5)
[2020-03-21 13:35] LABS: Basophils # (A) 0.1 k/uL (0-0.2); Basophils % (A) 1 %; Eosinophils # (A) 0.2 k/uL (0-0.7); Eosinophils % (A) 1 %; HCT 48.1 % (34.0-46.0); HGB 15.6 gm/dL (11.4-16.0); Lymphocytes # (A) 4.3 k/uL (1.0-4.8); Lymphocytes % (A) 34 %; MCH 30.3 pg (25.0-35.0); MCHC 32.5 g/dL (31.0-37.0); MCV 93.3 fL (80.0-100.0); Mean Platelet Volume 7.8; Monocytes # (A) 0.6 k/uL (0-1.0); Monocytes % (A) 4 %; Neutrophils # (A) 7.4 k/uL (1.3-7.7); Neutrophils % (A) 58 %; Platelet Count 211 k/uL (150-450); RBC 5.15 m/uL (3.80-5.40); RDW 14.1 % (11.5-15.5); WBC 12.7 k/uL (3.8-10.6)
[2020-03-21 13:48] LABS: ALT 26 U/L (4-34); AST 32 U/L (14-36); African American GFR (CKD) >90 (>60 ml/min/1.73 sqM); Albumin 4.8 g/dL (3.5-5.0); Alkaline Phosphatase 81 U/L (38-126); Anion Gap 9 mmol/L; Blood Urea Nitrogen 11 mg/dL (7-17); Calcium 9.3 mg/dL (8.4-10.2); Carbon Dioxide 25 mmol/L (22-30); Chloride 105 mmol/L (98-107); Glucose 91 mg/dL (74-99); Non-African American GFR(CKD) >90 (>60 ml/min/1.73 sqM); Potassium 3.9 mmol/L (3.5-5.1); Sodium 139 mmol/L (137-145); Total Bilirubin 0.9 mg/dL (0.2-1.3); Total Protein 7.5 g/dL (6.3-8.2)
--- NOTE | 2020-03-21 14:27 | CT ---
EXAMINATION TYPE: CT abdomen pelvis w con DATE OF EXAM: 03/21/2020 COMPARISON: None HISTORY: RLQ abdominal pain CT DLP: 833.4 mGycm Automated exposure control for dose reduction was used. TECHNIQUE: Helical acquisition of images from the lung bases through the pelvis have been completed. CONTRAST: Performed without Oral Contrast and with IV Contrast, patient injected with 100 ml mL of Isovue 300. FINDINGS: LUNG BASES: No significant abnormality is appreciated. AORTA: No significant abnormality is appreciated. LIVER/GB: No significant abnormality is appreciated. PANCREAS: No significant abnormality is seen. SPLEEN: No significant abnormality is seen. ADRENALS: No significant abnormality is seen. KIDNEYS: Decreased nephrogram is present on the right, there is right-sided hydronephrosis and hydrou reter. Distal right ureteral calculus measures approximately 5 mm. REPRODUCTIVE ORGANS: No significant abnormality is seen BOWEL: No significant abnormality is seen. Appendix is normal. FREE AIR: No Free Air visible. ASCITES: There is some free fluid in the pelvis. PELVIC ADENOPATHY: None visualized. RETROPERITONEAL ADENOPATHY: No Retroperitoneal Adenopathy visible. URINARY BLADDER: No significant abnormality is seen. OSSEOUS STRUCTURES: No significant abnormality is seen. IMPRESSION: OBSTRUCTIVE DISTAL RIGHT URETERAL CALCULUS
[2020-03-21] MEDS ORDERED: MORPHINE SULFATE 2 MG/ML SYRINGE IVP ONE (14:38)
--- NOTE | 2020-03-21 14:48 | ED ---
Abdominal Pain HPI - General Chief Complaint: Abdominal Pain Stated Complaint: Abdominal Pain Time Seen by Provider: 03/21/20 13:05 Source: patient Mode of arrival: ambulatory Limitations: no limitations - History of Present Illness Initial Comments: Patient is a 29-year-old female presenting to the emergency Department with complaints of right-sided abdominal pain that has been increasing over the past week. She states she feels like the pain started in her right lower quadrant but now she has some radiation into her right side and right flank area. She denies any fever or chills. She is status post vaginal delivery 4 months. She has been doing well since the delivery, healing well. She states that she is not actively using control so there is a chance for . She admits to one episode of vomiting a few days ago, continued nausea. She denies any diarrhea, chest pain, short of breath. She has no urinary complaints. She has no further complaints at this time. Upon arrival to the ER, her vitals are stable. - Related Data Previous Rx's Medication Instructions Recorded Famotidine [Pepcid] 20 mg PO BID #20 tablet 04/10/18 Ondansetron Odt [Zofran Odt] 4 mg PO Q8HR PRN #12 tab 04/10/18 Albuterol Inhaler (Mhu) [Ventolin 1 - 2 puff INHALATION RT-Q6H PRN 03/17/19 Hfa Inhaler (Mhu)] #1 inhaler methylPREDNISolone Dose Pack 4 mg PO DIRECTED #21 package 03/17/19 [Medrol Dose Pack] Ketorolac [Toradol] 10 mg PO Q8HR #10 tab 03/21/20 Ondansetron Odt [Zofran Odt] 4 mg PO Q8HR PRN #10 tab 03/21/20 Allergies Allergy/AdvReac Type Severity Reaction Status Date / Time No Known Allergies Allergy Verified 03/21/20 13:04 Review of Systems ROS Statement: Those systems with pertinent positive or pertinent negative responses have been documented in the HPI. ROS Other: All systems not noted in ROS Statement are negative. Past Medical History Past Medical History: Asthma, Hypertension History of Any Multi-Drug Resistant Organisms: None Reported Past Surgical History: No Surgical Hx Reported Past Psychological History: No Psychological Hx Reported Smoking Status: Former smoker Past Alcohol Use History: Occasional Past Drug Use History: Marijuana General Exam - General Exam Comments Initial Comments: GENERAL: Patient is well-developed and well-nourished. Patient is nontoxic and in no acute distress, but does look uncomfortable. HEAD: Atraumatic, normocephalic. EYES: Pupils equal round and reactive to light, extraocular movements intact, sclera anicteric, conjunctiva are normal. Eyelids were unremarkable. ENT: TMs normal, nares patent, oropharynx clear without exudates. Moist mucous membranes. NECK: Normal range of motion, supple without lymphadenopathy or JVD. LUNGS: Unlabored respirations. Breath sounds clear to auscultation bilaterally and equal. No wheezes rales or rhonchi. HEART: Regular rate and rhythm without murmurs, rubs or gallops. ABDOMEN: Patient has pain with palpation of the right lower quadrant, right side of her abdomen. No flank pain. Soft, normoactive bowel sounds. No guarding, no rebound. No masses appreciated. : Deferred MUSCULOSKELETAL: Normal extremities with adequate strength and normal range of motion, no pitting or edema. No clubbing or cyanosis. NEUROLOGICAL: Patient is alert and oriented x 3. Motor and sensory are also intact. Normal speech, normal gait. PSYCH: Normal mood, normal affect. SKIN: Warm, Dry, normal turgor, no rashes or lesions noted. Limitations: no limitations Course Vital Signs 03/21/20 03/21/20 13:00 14:32 Temperature 97.9 F Pulse Rate 98 103 H Respiratory 18 18 Rate Blood Pressure 161/73 144/99 O2 Sat by Pulse 98 99 Oximetry Medical Decision Making - Medical Decision Making Patient is a 29-year-old female here for right lower quadrant pain has been increasing over the past week. She has had an episode of vomiting, continued nausea. She is 4 months post vaginal delivery, no complications, has been healing well. Her vital signs are stable, afebrile. Labs show slight leukocyt osis at 12.7, lactic acid is normal, patient has a large amount of blood in her urine, no signs of infection, she is not . I did do a CT of her abdomen and pelvis with concern for possible appendicitis versus kidney stone, there appears to be a 5 mm distal right ureteral calculus with right sided hydronephrosis. Appendix appears normal. I discussed these findings with the patient. Patient's been given fluids, pain control. She is comfortable to be discharged. I will send her home with some additional Toradol as well as Zofran. Recommended drinking plenty of fluids. She can follow up with her PCP. Patient is agreement with this plan of care. Return parameters were discussed with the patient she verbalized understanding. Case discussed with Dr. Castañeda. - Lab Data Result diagrams: 03/21/20 13:21 03/21/20 13:21 Lab Results 03/21/20 03/21/20 03/21/20 Range/Units 13:21 13:21 13:21 WBC 12.7 H (3.8-10.6) k/uL RBC 5.15 (3.80-5.40) m/uL Hgb 15.6 (11.4-16.0) gm/dL Hct 48.1 H (34.0-46.0) % MCV 93.3 (80.0-100.0) fL MCH 30.3 (25.0-35.0) pg MCHC 32.5 (31.0-37.0) g/dL RDW 14.1 (11.5-15.5) % Plt Count 211 (150-450) k/uL Neutrophils % 58 % Lymphocytes % 34 % Monocytes % 4 % Eosinophils % 1 % Basophils % 1 % Neutrophils # 7.4 (1.3-7.7) k/uL Lymphocytes # 4.3 (1.0-4.8) k/uL Monocytes # 0.6 (0-1.0) k/uL Eosinophils # 0.2 (0-0.7) k/uL Basophils # 0.1 (0-0.2) k/uL Sodium 139 (137-145) mmol/L Potassium 3.9 (3.5-5.1) mmol/L Chloride 105 (98-107) mmol/L Carbon Dioxide 25 (22-30) mmol/L Anion Gap 9 mmol/L BUN 11 (7-17) mg/dL Creatinine 0.78 (0.52-1.04) mg/dL Est GFR (CKD-EPI)AfAm >90 (>60 ml/min/1.73 sqM) Est GFR (CKD-EPI)NonAf >90 (>60 ml/min/1.73 sqM) Glucose 91 (74-99) mg/dL Plasma Lactic Acid Sal (0.7-2.0) mmol/L Calcium 9.3 (8.4-10.2) mg/dL Total Bilirubin 0.9 (0.2-1.3) mg/dL AST 32 (14-36) U/L ALT 26 (4-34) U/L Alkaline Phosphatase 81 (38-126) U/L Total Protein 7.5 (6.3-8.2) g/dL Albumin 4.8 (3.5-5.0) g/dL Urine Color Yellow Urine Appearance Clear (Clear) Urine pH 6.0 (5.0-8.0) Ur Specific [place] 1.029 (1.001-1.035) Urine Protein 2+ H (Negative) Urine Glucose (UA) Negative (Negative) Urine Ketones 1+ H (Negative) Urine Blood Large H (Negative) Urine Nitrite Negative (Negative) Urine Bilirubin Negative (Negative) Urine Urobilinogen 3.0 (<2.0) mg/dL Ur Leukocyte Esterase Negative (Negative) Urine RBC 127 H (0-5) /hpf Urine WBC 3 (0-5) /hpf Ur Squamous Epith Cells 2 (0-4) /hpf Hyaline Casts 3 H (0-2) /lpf Urine Mucus Many H (None) /hpf Urine HCG, Qual (Not Detectd) 03/21/20 03/21/20 Range/Units 13:21 13:21 WBC (3.8-10.6) k/uL RBC (3.80-5.40) m/uL Hgb (11.4-16.0) gm/dL Hct (34.0-46.0) % MCV (80.0-100.0) fL MCH (25.0-35.0) pg MCHC (31.0-37.0) g/dL RDW (11.5-15.5) % Plt Count (150-450) k/uL Neutrophils % % Lymphocytes % % Monocytes % % Eosinophils % % Basophils % % Neutrophils # (1.3-7.7) k/uL Lymphocytes # (1.0-4.8) k/uL Monocytes # (0-1.0) k/uL Eosinophils # (0-0.7) k/uL Basophils # (0-0.2) k/uL Sodium (137-145) mmol/L Potassium (3.5-5.1) mmol/L Chloride (98-107) mmol/L Carbon Dioxide (22-30) mmol/L Anion Gap mmol/L BUN (7-17) mg/dL Creatinine (0.52-1.04) mg/dL Est GFR (CKD-EPI)AfAm (>60 ml/min/1.73 sqM) Est GFR (CKD-EPI)NonAf (>60 ml/min/1.73 sqM) Glucose (74-99) mg/dL Plasma Lactic Acid Sal 0.7 (0.7-2.0) mmol/L Calcium (8.4-10.2) mg/dL Total Bilirubin (0.2-1.3) mg/dL AST (14-36) U/L ALT (4-34) U/L Alkaline Phosphatase (38-126) U/L Total Protein (6.3-8.2) g/dL Albumin (3.5-5.0) g/dL Urine Color Urine Appearance (Clear) Urine pH (5.0-8.0) Ur Specific [place] (1.001-1.035) Urine Protein (Negative) Urine Glucose (UA) (Negative) Urine Ketones (Negative) Urine Blood (Negative) Urine Nitrite (Negative) Urine Bilirubin (Negative) Urine Urobilinogen (<2.0) mg/dL Ur Leukocyte Esterase (Negative) Urine RBC (0-5) /hpf Urine WBC (0-5) /hpf Ur Squamous Epith Cells (0-4) /hpf Hyaline Casts (0-2) /lpf Urine Mucus (None) /hpf Urine HCG, Qual Not Detected (Not Detectd) Disposition Clinical Impression: Right lower quadrant abdominal pain, Right distal ureteral calculus, Nausea Disposition: HOME SELF-CARE Condition: Stable Instructions (If sedation given, give patient instructions): Kidney Stones (ED) Additional Instructions: Please return to the Emergency Department if symptoms worsen or any other concerns. May take Toradol for additional pain, Zofran for additional nausea. Make sure to drink plenty of fluids. Follow-up with PCP. Prescriptions: Ketorolac [Toradol] 10 mg PO Q8HR #10 tab Ondansetron Odt [Zofran Odt] 4 mg PO Q8HR PRN #10 tab PRN Reason: Nausea Is patient prescribed a controlled substance at d/c from ED?: No Referrals: None,Stated [Primary Care Provider] - 1-2 days Debra Guerrero MD [REFERRING] - 1-2 days
[2020-03-21] MEDS ORDERED: ONDANSETRON 4 MG/2 ML VIAL IVP STA (14:50)
[2020-03-21 15:35] VITALS: BP 147/80; PULSE 71; RESP 16; TEMP 98.3
== END 2020-03-21 15:30 | disposition home or self-care (01) ==
LOC: EC 12:32
DX: N20.1 Calculus of ureter (principal); D72.829 Elevated white blood cell count, unspecified; Z87.891 Personal history of nicotine dependence
CPT/HCPCS: 36415; 80053; 83605; 85025; 81001; 81025; 74177; 99284; 96374; 96375 ×2; 96376; 96361; J2405; J2270; J1885; Q9967

== ENCOUNTER 2020-11-19 09:48 | Emergency (ER) | payer OTHER ==
[2020-11-19 09:53] VITALS: RESP 18
--- NOTE | 2020-11-19 10:45 | ED ---
General Adult HPI - General Chief complaint: Extremity Problem,Nontraumatic Stated complaint: Shoulder Pain Time Seen by Provider: 11/19/20 10:03 Source: patient Mode of arrival: ambulatory Limitations: no limitations - History of Present Illness Initial comments: Patient is a 30-year-old female presenting to the emergency Department with complaints of increasing tightness and pain of her right posterior shoulder. She denies any injuries or trauma but states she has had issues of muscle tightness in the past. She states about 2 weeks ago she woke up with some soreness the right side of her neck as well as the posterior right shoulder. States she has been trying massages and heat to the area but it seems to be increasing. She is having a little bit of radiation of pain down her right arm. She denies any numbness or tingling. She states she did go to the chiropractor hoping that he would do some x-rays however he did not, they did an adjustment which didn't seem to help. She denies any fevers or chills. She did take some ibuprofen this morning which did seem to help. She has no further complaints at this time. - Related Data Home Medications Medication Instructions Recorded Confirmed Ibuprofen [Motrin Ib] 400 mg PO Q8H PRN 11/19/20 11/19/20 Previous Rx's Medication Instructions Recorded Cyclobenzaprine [Flexeril] 5 mg PO HS #10 tab 11/19/20 Allergies Allergy/AdvReac Type Severity Reaction Status Date / Time No Known Allergies Allergy Verified 11/19/20 10:36 Review of Systems ROS Statement: Those systems with pertinent positive or pertinent negative responses have been documented in the HPI. ROS Other: All systems not noted in ROS Statement are negative. Past Medical History Past Medical History: Asthma, Hypertension History of Any Multi-Drug Resistant Organisms: None Reported Past Surgical History: No Surgical Hx Reported Past Psychological History: No Psychological Hx Reported Smoking Status: Current every day smoker Past Alcohol Use History: Occasional Past Drug Use History: Marijuana General Exam - General Exam Comments Initial Comments: GENERAL: Patient is well-developed and well-nourished. Patient is nontoxic and in no acute distress. HEAD: Atraumatic, normocephalic. EYES: Pupils equal round and reactive to light, extraocular movements intact, sclera anicteric, conjunctiva are normal. Eyelids were unremarkable. ENT: TMs normal, nares patent, oropharynx clear without exudates. Moist mucous membranes. NECK: Normal range of motion, supple without lymphadenopathy or JVD. No midline tenderness. LUNGS: Unlabored respirations. Breath sounds clear to auscultation bilaterally and equal. No wheezes rales or rhonchi. HEART: Regular rate and rhythm without murmurs, rubs or gallops. ABDOMEN: Soft, nontender, normoactive bowel sounds. No guarding, no rebound. No masses appreciated. : Deferred MUSCULOSKELETAL: Normal extremities with adequate strength and normal range of motion, no pitting or edema. No clubbing or cyanosis. Tightness of the right posterior shoulder, right upper trap. NEUROLOGICAL: Patient is alert and oriented x 3. Motor and sensory are also intact. Cranial nerves II through XII grossly intact. Symmetrical smile. Normal speech, normal gait. PSYCH: Normal mood, normal affect. SKIN: Warm, Dry, normal turgor, no rashes or lesions noted. Limitations: no limitations Course Vital Signs 11/19/20 09:50 Temperature 97.8 F Pulse Rate 90 Respiratory 18 Rate Blood Pressure 137/68 O2 Sat by Pulse 98 Oximetry Medical Decision Making - Medical Decision Making Patient is a 30-year-old female here with right shoulder posterior discomfort, tightness for the last 2 weeks. Cervical x-rays today showed degenerative disc disease, no fracture dislocation. I discussed these findings with the patient. We discussed that her symptoms mostly related to muscle spasms. I recommended continuing with massage, heat to the area, low dose of a muscle relaxer at nighttime. I will give her orthopedic referral. She is stable for discharge and she is in agreement with this plan of care. Continue with Tylenol and/or Motrin for any discomfort. Case discussed with Dr. Castañeda. Disposition Clinical Impression: Cervical paraspinal muscle spasm, Musculoskeletal disorder involving upper trapezius muscle Disposition: HOME SELF-CARE Condition: Stable Instructions (If sedation given, give patient instructions): Muscle Spasm (ED) Additional Instructions: Please return to the Emergency Department if symptoms worsen or any other con cerns. HEENT the area, massage, trial of muscle relaxer at nighttime. Follow up with orthopedics. Prescriptions: Cyclobenzaprine [Flexeril] 5 mg PO HS #10 tab Is patient prescribed a controlled substance at d/c from ED?: No Referrals: None,Stated [Primary Care Provider] - 1-2 days Antonio Valdez DO [Doctor of Osteopathic Medicine] - 1-2 days Time of Disposition: 11:29
--- NOTE | 2020-11-19 11:15 | XR ---
Limited cervical spine HISTORY: Right shoulder pain 3 views of the cervical spine Reversal of the normal cervical lordosis may be due to muscle spasm. At C5-6 there is loss of disc he ight and hypertrophic change present. Cervical vertebral bodies show preserved height and alignment. There is a slight spinal curvature present. No fracture or dislocation. IMPRESSION: Degenerative disc disease, cervical MRI may be of benefit.
[2020-11-19 11:41] VITALS: BP 138/78; PULSE 78; TEMP 98.3
== END 2020-11-19 11:41 | disposition home or self-care (01) ==
LOC: EC 09:48
DX: M62.838 Other muscle spasm (principal); M62.9 Disorder of muscle, unspecified; M25.511 Pain in right shoulder; I10 Essential (primary) hypertension; J45.909 Unspecified asthma, uncomplicated; F17.200 Nicotine dependence, unspecified, uncomplicated; F12.90 Cannabis use, unspecified, uncomplicated; Z79.1 Long term (current) use of non-steroidal anti-inflammatories (NSAID)
CPT/HCPCS: 72040; 99283